=== PATIENT | male | born 1965 ===

== ENCOUNTER 2022-08-23 16:40 | Inpatient (IN) ==
[2022-08-23] MEDS ORDERED: ALBUTEROL/IPRATROPIUM 3 ML NEB RESP TX STA (16:58)
[2022-08-23] MEDS ORDERED: ALBUTEROL 2.5 MG/3 ML NEB RESP TX STA (16:58)
[2022-08-23] MEDS ORDERED: ASPIRIN 325 MG TABLET PO STA (16:58)
[2022-08-23] MEDS ORDERED: methylPREDNISolone SOD SUC 125 MG/2 ML VIAL IV STA (16:58)
[2022-08-23] MEDS ORDERED: FUROSEMIDE 40 MG/4 ML VIAL IV STA ×2 (16:59→19:04)
[2022-08-23 17:23] LABS: Basophils # 0.1 10*3/uL (0.0-0.2); Basophils % 0.8 % (0.0-0.8); Eosinophils # 0.1 10*3/uL (0.0-0.87); Eosinophils % 1.2 % (0.00-10.9); Hematocrit 24.5 VOL% (42.0-52.0); Hemoglobin 7.6 GM/DL (14.0-18.0); Immature Granulocytes % 0.5 %; Immature Granulocytes Absolute 0.04 #; Lymphocytes # 0.6 10*3/uL (1.4-4.0); Mean Corpuscular Volume 92.1 FL (87-102); Mean Platelet Volume 8.3 FL (9.6-12.0); Monocytes # 0.5 10*3/uL (0.11-0.8); Monocytes % 6.7 % (1.7-12.7); Neutrophils % 82.8 % (38.7-73.9); Platelet Count 206 T/CUMM (130-400); Red Blood Count 2.66 MC/CUMM (3.8-5.5); Red Cell Distribution Width 21.3 % (9.3-17.3); White Blood Count 7.4 T/CUMM (4-12)
[2022-08-23 17:40] LABS: INR 1.4
[2022-08-23 17:44] LABS: Alanine Aminotransferase 10 U/L (16-61); Albumin 2.4 G/DL (3.4-5.0); Alkaline Phosphatase 354 U/L (45-117); Aspartate Amino Transferase 13 U/L (0-37); Blood Urea Nitrogen 133 MG/DL (7-18); Calcium 7.7 MG/DL (8.5-10.1); Carbon Dioxide 20 MMOL/L (21-32); Chloride 98 MMOL/L (98-107); Glucose 73 MG/DL (74-106); Osmolality,Calculated 305.5 MOS/KG (273-304); Sodium 132 MMOL/L (136-145); Total Protein 5.3 G/DL (6.4-8.2)
[2022-08-23 17:51] LABS: Potassium 6.1 MMOL/L (3.5-5.1)
[2022-08-23 18:16] LABS: Arterial Base Excess iSTAT -5 MMOL/L (-2.5-2.5); Arterial Bicarbonate iSTAT 21.4 MMOL/L (20-26); Arterial O2 Saturation iSTAT 64 % (95-100); Arterial PCO2 iSTAT 45 MM HG (35-48); Arterial PO2 iSTAT 37 MM HG (80-95); Arterial Total CO2 iSTAT 23 MMO/L (23-27); Arterial pH iSTAT 7.283 (7.35-7.45)
[2022-08-23 18:30] LABS: Bilirubin,Urine Negative (Negative); Blood, Urine Small mg/dL (Negative); Glucose,Urine (UA) Negative (Negative); Ketones,Urine Negative (Negative); Nitrite,Urine Negative (Negative); Protein,Urine 30 mg/dL (Negative); Urine Appearance Clear (Clear); Urine Color Yellow (Yellow); Urine Specific Gravity 1.015 (1.001-1.035); Urine Urobilinogen 0.2 eU/dL (<2.0); Urine pH 5.5 (4.5-8.0)
[2022-08-23 18:32] LABS: Arterial Base Excess iSTAT -6 MMOL/L (-2.5-2.5); Arterial Bicarbonate iSTAT 20.2 MMOL/L (20-26); Arterial O2 Saturation iSTAT 99 % (95-100); Arterial PCO2 iSTAT 42 MM HG (35-48); Arterial PO2 iSTAT 164 MM HG (80-95); Arterial Total CO2 iSTAT 21 MMO/L (23-27)
[2022-08-23 18:34] LABS: Bacteria,Urine Occasional /HPF (Few); Hyaline Casts,Urine 4 /LPF (0-3); RBC,Urine 11 /HPF (0-4)
[2022-08-23] MEDS ORDERED: SODIUM BICARBONATE 50 MEQ/50 ML VIAL IV STA (18:55)
[2022-08-23] MEDS ORDERED: INSULIN REGULAR 100 UNIT/ML IV STA (19:04)
[2022-08-23] MEDS ORDERED: DEXTROSE 50% 25 GM/50 ML VIAL IV STA (19:04)
[2022-08-23] MEDS ORDERED: DEXTROSE 50% 25 GM/50 ML SYRINGE IV STA (19:08)
[2022-08-23] MEDS ORDERED: CALCIUM GLUCONATE RIDER 2,000 MG/100 ML PREMIX IV ONE (19:20)
[2022-08-23] MEDS ORDERED: SODIUM POLYSTYRENE SULFATE 15 GM/60 ML BOTTLE PO STA (19:48)
[2022-08-23] MEDS ORDERED: ACETAMINOPHEN 325 MG TABLET PO PRN (19:50)
[2022-08-23] MEDS ORDERED: ONDANSETRON 4 MG/2 ML VIAL IV PRN (19:50)
[2022-08-23] MEDS ORDERED: FUROSEMIDE 40 MG/4 ML VIAL IV ONE (19:59)
[2022-08-23] MEDS: cefTRIAXone 1,000 MG in SODIUM CHLORIDE 0.9% 100 ML IV SCH (22:22)
[2022-08-23] MEDS: HEPARIN 5,000 UNIT/1 ML VIAL SUBCUT SCH (22:22)
[2022-08-24] MEDS: ALBUTEROL/IPRATROPIUM 3 ML NEB RESP TX SCH ×4 (00:56→19:15)
[2022-08-24 03:15] LABS: Basophils % 0.2 % (0.0-0.8); Hematocrit 25.8 VOL% (42.0-52.0); Hemoglobin 7.8 GM/DL (14.0-18.0); Immature Granulocytes % 2.2 %; Immature Granulocytes Absolute 0.13 #; Lymphocytes # 0.3 10*3/uL (1.4-4.0); Lymphocytes % 5.7 % (21.2-54.2); Mean Corpuscular HGB Conc 30.2 GM/DL (32-36); Mean Corpuscular Volume 93.5 FL (87-102); Mean Platelet Volume 8.9 FL (9.6-12.0); Monocytes # 0.1 10*3/uL (0.11-0.8); Monocytes % 1.2 % (1.7-12.7); Neutrophils % 90.7 % (38.7-73.9); Platelet Count 224 T/CUMM (130-400); Red Blood Count 2.76 MC/CUMM (3.8-5.5); Red Cell Distribution Width 21.3 % (9.3-17.3); White Blood Count 5.8 T/CUMM (4-12)
[2022-08-24 03:32] LABS: Alanine Aminotransferase 12 U/L (16-61); Albumin 2.2 G/DL (3.4-5.0); Alkaline Phosphatase 300 U/L (45-117); Aspartate Amino Transferase 33 U/L (0-37); Blood Urea Nitrogen 134 MG/DL (7-18); Calcium 9.8 MG/DL (8.5-10.1); Carbon Dioxide 21 MMOL/L (21-32); Chloride 94 MMOL/L (98-107); Glucose 297 MG/DL (74-106); Osmolality,Calculated 313.8 MOS/KG (273-304); Sodium 130 MMOL/L (136-145); Total Protein 5.3 G/DL (6.4-8.2)
[2022-08-24 03:35] LABS: Potassium 6.6 MMOL/L (3.5-5.1)
[2022-08-24 03:39] LABS: Arterial Base Excess iSTAT -4 MMOL/L (-2.5-2.5); Arterial Bicarbonate iSTAT 22.6 MMOL/L (20-26); Arterial O2 Saturation iSTAT 100 % (95-100); Arterial PCO2 iSTAT 48 MM HG (35-48); Arterial PO2 iSTAT 570 MM HG (80-95); Arterial Total CO2 iSTAT 24 MMO/L (23-27); Arterial pH iSTAT 7.277 (7.35-7.45)
[2022-08-24] MEDS ORDERED: INSULIN REGULAR 10 UNIT, CALCIUM GLUCONATE 1,000 MG in DEXTROSE 10% 250 ML IV ONE ×2 (03:49→05:30)
[2022-08-24] MEDS ORDERED: SODIUM BICARBONATE 50 MEQ/50 ML VIAL IV ONE (03:50)
[2022-08-24 04:24] LABS: Hypochromia Slight; Lymphocytes 5 % (20-55); Platelet Estimate Adequate; Total Cells Counted 100
[2022-08-24] MEDS: AZITHROMYCIN INJ 500 MG in SODIUM CHLORIDE 0.9% 250 ML IV SCH (08:29)
[2022-08-24] MEDS: HEPARIN 5,000 UNIT/1 ML VIAL SUBCUT SCH ×2 (08:30→21:15)
[2022-08-24 08:47] LABS: Hepatitis B Core IgM Quant 0.13 Index; Hepatitis B Surface Ag Quant < 0.10 Index; Hepatitis B Surface Ag Result Non-Reactive (NonReactive); Hepatitis C Virus Ab Quant 0.05 Index; Hepatitis C Virus Ab Result Non-Reactive (NonReactive)
[2022-08-24] MEDS ORDERED: metOLazone 5 MG TABLET PO SCH (09:00)
[2022-08-24] MEDS: MIDAZOLAM 100 MG in SODIUM CHLORIDE 0.9% 80 ML IV PRN (09:04)
[2022-08-24] MEDS ORDERED: PHENYLEPHRINE DRIP 40 MG/250 ML PREMIX IV ONE (09:46)
[2022-08-24] MEDS: PHENYLEPHRINE DRIP 40 MG/250 ML PREMIX IV PRN (10:28)
[2022-08-24] MEDS ORDERED: HEPARIN 10,000 UNIT/10 ML VIAL IV SCH (13:00)
[2022-08-24] MEDS: cefTRIAXone 1,000 MG in SODIUM CHLORIDE 0.9% 100 ML IV SCH (21:15)
[2022-08-25] MEDS: ALBUTEROL/IPRATROPIUM 3 ML NEB RESP TX SCH ×4 (00:10→19:08)
[2022-08-25] MEDS: PHENYLEPHRINE DRIP 40 MG/250 ML PREMIX IV PRN ×3 (02:18→23:41)
[2022-08-25 03:24] LABS: Basophils % 0.2 % (0.0-0.8); Eosinophils % 0.2 % (0.00-10.9); Hematocrit 24.1 VOL% (42.0-52.0); Hemoglobin 7.6 GM/DL (14.0-18.0); Immature Granulocytes % 0.5 %; Immature Granulocytes Absolute 0.06 #; Lymphocytes # 1.1 10*3/uL (1.4-4.0); Lymphocytes % 9.7 % (21.2-54.2); Mean Corpuscular HGB Conc 31.5 GM/DL (32-36); Mean Corpuscular Volume 91.3 FL (87-102); Mean Platelet Volume 8.7 FL (9.6-12.0); Monocytes # 0.9 10*3/uL (0.11-0.8); Monocytes % 8.2 % (1.7-12.7); Neutrophils % 81.2 % (38.7-73.9); Platelet Count 190 T/CUMM (130-400); Red Blood Count 2.64 MC/CUMM (3.8-5.5); Red Cell Distribution Width 21.4 % (9.3-17.3); White Blood Count 11.5 T/CUMM (4-12)
[2022-08-25 03:40] LABS: Calcium 8.1 MG/DL (8.5-10.1); Osmolality,Calculated 299.8 MOS/KG (273-304); Potassium 4.6 MMOL/L (3.5-5.1)
[2022-08-25 03:46] LABS: Arterial Base Excess iSTAT 0 MMOL/L (-2.5-2.5); Arterial Bicarbonate iSTAT 25.3 MMOL/L (20-26); Arterial O2 Saturation iSTAT 99 % (95-100); Arterial PCO2 iSTAT 43 MM HG (35-48); Arterial PO2 iSTAT 136 MM HG (80-95); Arterial Total CO2 iSTAT 27 MMO/L (23-27); Arterial pH iSTAT 7.382 (7.35-7.45)
[2022-08-25] MEDS: PANTOPRAZOLE 40 MG VIAL IV SCH (08:03)
[2022-08-25] MEDS: AZITHROMYCIN INJ 500 MG in SODIUM CHLORIDE 0.9% 250 ML IV SCH (08:08)
[2022-08-25] MEDS: HEPARIN 5,000 UNIT/1 ML VIAL SUBCUT SCH ×2 (08:08→20:33)
[2022-08-25] MEDS: MIDAZOLAM 100 MG in SODIUM CHLORIDE 0.9% 80 ML IV PRN ×2 (09:10→20:32)
[2022-08-25] MEDS: DEXTROSE 10% 250 ML BAG IV PRN (13:03)
[2022-08-25] MEDS: cefTRIAXone 1,000 MG in SODIUM CHLORIDE 0.9% 100 ML IV SCH (20:37)
[2022-08-26] MEDS: ALBUTEROL/IPRATROPIUM 3 ML NEB RESP TX SCH ×4 (00:13→18:14)
[2022-08-26 04:18] LABS: Arterial Base Excess iSTAT 1 MMOL/L (-2.5-2.5); Arterial Bicarbonate iSTAT 25.2 MMOL/L (20-26); Arterial O2 Saturation iSTAT 99 % (95-100); Arterial PCO2 iSTAT 38 MM HG (35-48); Arterial PO2 iSTAT 153 MM HG (80-95); Arterial Total CO2 iSTAT 26 MMO/L (23-27); Arterial pH iSTAT 7.435 (7.35-7.45)
[2022-08-26 05:07] LABS: Basophils % 0.3 % (0.0-0.8); Eosinophils # 0.1 10*3/uL (0.0-0.87); Eosinophils % 0.6 % (0.00-10.9); Hematocrit 24.7 VOL% (42.0-52.0); Hemoglobin 7.6 GM/DL (14.0-18.0); Immature Granulocytes % 0.5 %; Immature Granulocytes Absolute 0.06 #; Lymphocytes # 1.2 10*3/uL (1.4-4.0); Lymphocytes % 9.9 % (21.2-54.2); Mean Corpuscular HGB Conc 30.8 GM/DL (32-36); Mean Corpuscular Volume 92.9 FL (87-102); Mean Platelet Volume 8.4 FL (9.6-12.0); Monocytes # 0.9 10*3/uL (0.11-0.8); Monocytes % 7.8 % (1.7-12.7); Neutrophils % 80.9 % (38.7-73.9); Platelet Count 158 T/CUMM (130-400); Red Blood Count 2.66 MC/CUMM (3.8-5.5); Red Cell Distribution Width 21.4 % (9.3-17.3); White Blood Count 11.9 T/CUMM (4-12)
[2022-08-26 05:27] LABS: Calcium 8.3 MG/DL (8.5-10.1); Osmolality,Calculated 285.8 MOS/KG (273-304); Potassium 4.1 MMOL/L (3.5-5.1)
[2022-08-26] MEDS: MIDAZOLAM 100 MG in SODIUM CHLORIDE 0.9% 80 ML IV PRN ×2 (06:42→17:18)
[2022-08-26] MEDS ORDERED: SODIUM CHLORIDE 0.9% 1,000 ML IV PRN (08:44)
[2022-08-26] MEDS: AZITHROMYCIN INJ 500 MG in SODIUM CHLORIDE 0.9% 250 ML IV SCH (09:03)
[2022-08-26] MEDS: PANTOPRAZOLE 40 MG VIAL IV SCH (09:04)
[2022-08-26] MEDS: HEPARIN 5,000 UNIT/1 ML VIAL SUBCUT SCH ×2 (09:05→20:22)
[2022-08-26] MEDS ORDERED: fentaNYL 25 MCG/HR PATCH TRANSDERM PRN ×2 (12:16→13:00)
[2022-08-26] MEDS: GABAPENTIN 100 MG CAPSULE PO SCH ×2 (14:24→20:22)
[2022-08-26 16:05] LABS: Hematocrit 27.6 VOL% (42.0-52.0); Hemoglobin 8.7 GM/DL (14.0-18.0)
[2022-08-26] MEDS: cefTRIAXone 1,000 MG in SODIUM CHLORIDE 0.9% 100 ML IV SCH (20:22)
[2022-08-27] MEDS: ALBUTEROL/IPRATROPIUM 3 ML NEB RESP TX SCH ×4 (00:41→19:09)
[2022-08-27 03:54] LABS: Basophils % 0.2 % (0.0-0.8); Eosinophils # 0.1 10*3/uL (0.0-0.87); Eosinophils % 1.2 % (0.00-10.9); Hematocrit 25.4 VOL% (42.0-52.0); Hemoglobin 7.9 GM/DL (14.0-18.0); Immature Granulocytes % 0.7 %; Immature Granulocytes Absolute 0.07 #; Lymphocytes % 9.2 % (21.2-54.2); Mean Corpuscular HGB Conc 31.1 GM/DL (32-36); Mean Corpuscular Volume 93.4 FL (87-102); Mean Platelet Volume 9.2 FL (9.6-12.0); Monocytes # 0.7 10*3/uL (0.11-0.8); Monocytes % 6.2 % (1.7-12.7); Neutrophils % 82.5 % (38.7-73.9); Red Blood Count 2.72 MC/CUMM (3.8-5.5); White Blood Count 10.4 T/CUMM (4-12)
[2022-08-27 03:56] LABS: Platelet Count 106 T/CUMM (130-400)
[2022-08-27 04:00] LABS: Arterial Base Excess iSTAT 3 MMOL/L (-2.5-2.5); Arterial Bicarbonate iSTAT 26.8 MMOL/L (20-26); Arterial O2 Saturation iSTAT 98 % (95-100); Arterial PCO2 iSTAT 39 MM HG (35-48); Arterial PO2 iSTAT 96 MM HG (80-95); Arterial Total CO2 iSTAT 28 MMO/L (23-27); Arterial pH iSTAT 7.445 (7.35-7.45)
[2022-08-27 04:00] LABS: Arterial Base Excess iSTAT 3 MMOL/L (-2.5-2.5); Arterial Bicarbonate iSTAT 27.1 MMOL/L (20-26); Arterial O2 Saturation iSTAT 90 % (95-100); Arterial PCO2 iSTAT 40 MM HG (35-48); Arterial PO2 iSTAT 56 MM HG (80-95); Arterial Total CO2 iSTAT 28 MMO/L (23-27); Arterial pH iSTAT 7.436 (7.35-7.45)
[2022-08-27 04:06] LABS: Calcium 8.2 MG/DL (8.5-10.1); Osmolality,Calculated 287.5 MOS/KG (273-304); Potassium 3.5 MMOL/L (3.5-5.1); Total Protein 4.8 G/DL (6.4-8.2)
[2022-08-27] MEDS: MIDAZOLAM 100 MG in SODIUM CHLORIDE 0.9% 80 ML IV PRN (04:20)
[2022-08-27] MEDS: HEPARIN 5,000 UNIT/1 ML VIAL SUBCUT SCH ×2 (08:25→20:25)
[2022-08-27] MEDS: AZITHROMYCIN INJ 500 MG in SODIUM CHLORIDE 0.9% 250 ML IV SCH (08:25)
[2022-08-27] MEDS: FERROUS SULFATE 325 MG TABLET PO SCH (08:25)
[2022-08-27] MEDS: GABAPENTIN 100 MG CAPSULE PO SCH ×3 (08:25→20:26)
[2022-08-27] MEDS: PANTOPRAZOLE 40 MG VIAL IV SCH (08:25)
[2022-08-27] MEDS: cefTRIAXone 1,000 MG in SODIUM CHLORIDE 0.9% 100 ML IV SCH (20:25)
[2022-08-28] MEDS: ALBUTEROL/IPRATROPIUM 3 ML NEB RESP TX SCH ×4 (00:20→19:43)
[2022-08-28 03:26] LABS: Arterial Base Excess iSTAT 2 MMOL/L (-2.5-2.5); Arterial Bicarbonate iSTAT 27.3 MMOL/L (20-26); Arterial O2 Saturation iSTAT 99 % (95-100); Arterial PCO2 iSTAT 43 MM HG (35-48); Arterial PO2 iSTAT 143 MM HG (80-95); Arterial Total CO2 iSTAT 29 MMO/L (23-27); Arterial pH iSTAT 7.415 (7.35-7.45)
[2022-08-28 04:41] LABS: Albumin 2.1 G/DL (3.4-5.0); Bilirubin,Total 0.9 MG/DL (0.20-1.00); Calcium 8.4 MG/DL (8.5-10.1); Osmolality,Calculated 290.5 MOS/KG (273-304); Potassium 3.6 MMOL/L (3.5-5.1); Total Protein 5.3 G/DL (6.4-8.2)
[2022-08-28 04:43] LABS: Basophils % 0.3 % (0.0-0.8); Eosinophils # 0.5 10*3/uL (0.0-0.87); Hematocrit 27.7 VOL% (42.0-52.0); Hemoglobin 8.2 GM/DL (14.0-18.0); Immature Granulocytes % 0.5 %; Immature Granulocytes Absolute 0.07 #; Lymphocytes # 0.9 10*3/uL (1.4-4.0); Lymphocytes % 6.7 % (21.2-54.2); Mean Corpuscular HGB Conc 29.6 GM/DL (32-36); Mean Corpuscular Volume 96.5 FL (87-102); Mean Platelet Volume 9.1 FL (9.6-12.0); Monocytes % 7.4 % (1.7-12.7); Neutrophils % 81.1 % (38.7-73.9); Platelet Count 113 T/CUMM (130-400); Red Blood Count 2.87 MC/CUMM (3.8-5.5); Red Cell Distribution Width 20.6 % (9.3-17.3); White Blood Count 13.2 T/CUMM (4-12)
[2022-08-28] MEDS: HEPARIN 5,000 UNIT/1 ML VIAL SUBCUT SCH ×2 (08:46→20:10)
[2022-08-28] MEDS: GABAPENTIN 100 MG CAPSULE PO SCH ×3 (08:46→20:09)
[2022-08-28] MEDS: FERROUS SULFATE 325 MG TABLET PO SCH (08:46)
[2022-08-28] MEDS: PANTOPRAZOLE 40 MG VIAL IV SCH (08:47)
[2022-08-28] MEDS: AZITHROMYCIN INJ 500 MG in SODIUM CHLORIDE 0.9% 250 ML IV SCH (08:47)
[2022-08-28] MEDS ORDERED: FUROSEMIDE 100 MG/10 ML VIAL IV ONE (09:05)
[2022-08-28] MEDS: cefTRIAXone 1,000 MG in SODIUM CHLORIDE 0.9% 100 ML IV SCH (20:09)
[2022-08-29] MEDS: ALBUTEROL/IPRATROPIUM 3 ML NEB RESP TX SCH ×4 (00:40→19:41)
[2022-08-29 03:43] LABS: Basophils % 0.4 % (0.0-0.8); Eosinophils # 0.4 10*3/uL (0.0-0.87); Eosinophils % 3.7 % (0.00-10.9); Hematocrit 25.6 VOL% (42.0-52.0); Hemoglobin 7.8 GM/DL (14.0-18.0); Immature Granulocytes % 0.7 %; Immature Granulocytes Absolute 0.07 #; Lymphocytes # 0.9 10*3/uL (1.4-4.0); Lymphocytes % 8.2 % (21.2-54.2); Mean Corpuscular HGB Conc 30.5 GM/DL (32-36); Mean Corpuscular Volume 94.1 FL (87-102); Mean Platelet Volume 9.5 FL (9.6-12.0); Red Blood Count 2.72 MC/CUMM (3.8-5.5); Red Cell Distribution Width 20.4 % (9.3-17.3); White Blood Count 10.4 T/CUMM (4-12)
[2022-08-29 03:45] LABS: Platelet Count 98 T/CUMM (130-400)
[2022-08-29 03:52] LABS: Arterial Base Excess iSTAT 3 MMOL/L (-2.5-2.5); Arterial Bicarbonate iSTAT 27.2 MMOL/L (20-26); Arterial O2 Saturation iSTAT 99 % (95-100); Arterial PCO2 iSTAT 39 MM HG (35-48); Arterial PO2 iSTAT 138 MM HG (80-95); Arterial Total CO2 iSTAT 28 MMO/L (23-27); Arterial pH iSTAT 7.451 (7.35-7.45)
[2022-08-29 04:07] LABS: Platelet Estimate Decreased
[2022-08-29 04:12] LABS: Bilirubin,Total 0.9 MG/DL (0.20-1.00); Calcium 8.5 MG/DL (8.5-10.1); Osmolality,Calculated 294.5 MOS/KG (273-304); Potassium 3.9 MMOL/L (3.5-5.1); Total Protein 5.3 G/DL (6.4-8.2)
[2022-08-29] MEDS: PANTOPRAZOLE 40 MG VIAL IV SCH (08:00)
[2022-08-29] MEDS: FERROUS SULFATE 325 MG TABLET PO SCH (08:04)
[2022-08-29] MEDS: HEPARIN 5,000 UNIT/1 ML VIAL SUBCUT SCH ×2 (08:04→21:37)
[2022-08-29] MEDS: GABAPENTIN 100 MG CAPSULE PO SCH ×3 (08:05→21:38)
[2022-08-29] MEDS: AZITHROMYCIN INJ 500 MG in SODIUM CHLORIDE 0.9% 250 ML IV SCH (08:05)
[2022-08-29 15:02] VITALS: BP 137/95
[2022-08-29] MEDS: methylPREDNISolone SOD SUC 40 MG/1 ML VIAL IV SCH (18:35)
[2022-08-29] MEDS: cefTRIAXone 1,000 MG in SODIUM CHLORIDE 0.9% 100 ML IV SCH (21:38)
[2022-08-30] MEDS: ALBUTEROL/IPRATROPIUM 3 ML NEB RESP TX SCH ×4 (00:19→20:27)
[2022-08-30] MEDS: methylPREDNISolone SOD SUC 40 MG/1 ML VIAL IV SCH ×2 (03:31→09:30)
[2022-08-30 04:07] LABS: Arterial Base Excess iSTAT -1 MMOL/L (-2.5-2.5); Arterial Bicarbonate iSTAT 22.5 MMOL/L (20-26); Arterial O2 Saturation iSTAT 99 % (95-100); Arterial PCO2 iSTAT 31 MM HG (35-48); Arterial PO2 iSTAT 129 MM HG (80-95); Arterial Total CO2 iSTAT 23 MMO/L (23-27); Arterial pH iSTAT 7.475 (7.35-7.45)
[2022-08-30 04:40] LABS: Basophils % 0.2 % (0.0-0.8); Hematocrit 28.7 VOL% (42.0-52.0); Hemoglobin 8.5 GM/DL (14.0-18.0); Immature Granulocytes % 0.8 %; Immature Granulocytes Absolute 0.07 #; Lymphocytes # 0.4 10*3/uL (1.4-4.0); Lymphocytes % 4.9 % (21.2-54.2); Mean Corpuscular HGB Conc 29.6 GM/DL (32-36); Mean Platelet Volume 10.6 FL (9.6-12.0); Monocytes # 0.4 10*3/uL (0.11-0.8); Monocytes % 3.9 % (1.7-12.7); Neutrophils % 90.2 % (38.7-73.9); Platelet Count 106 T/CUMM (130-400); Red Blood Count 2.93 MC/CUMM (3.8-5.5); Red Cell Distribution Width 20.4 % (9.3-17.3)
[2022-08-30 04:59] LABS: Albumin 2.3 G/DL (3.4-5.0); Bilirubin,Total 1.2 MG/DL (0.20-1.00); Calcium 9.2 MG/DL (8.5-10.1); Hypochromia Slight; Lymphocytes 6 % (20-55); Microcytosis Slight; Osmolality,Calculated 300.3 MOS/KG (273-304); Platelet Estimate Decreased; Potassium 5.2 MMOL/L (3.5-5.1); Total Cells Counted 100; Total Protein 6.3 G/DL (6.4-8.2)
[2022-08-30] MEDS ORDERED: METOPROLOL TARTRATE 5 MG/5 ML VIAL IV ONE (05:24)
[2022-08-30] MEDS: PANTOPRAZOLE 40 MG VIAL IV SCH (08:20)
[2022-08-30] MEDS: HEPARIN 5,000 UNIT/1 ML VIAL SUBCUT SCH ×2 (08:27→20:30)
[2022-08-30] MEDS: FERROUS SULFATE 325 MG TABLET PO SCH (08:27)
[2022-08-30] MEDS: GABAPENTIN 100 MG CAPSULE PO SCH ×3 (08:27→20:30)
[2022-08-30] MEDS: carvediloL 6.25 MG TABLET PO SCH ×2 (08:27→20:47)
[2022-08-30] MEDS: AZITHROMYCIN INJ 500 MG in SODIUM CHLORIDE 0.9% 250 ML IV SCH (08:27)
[2022-08-30] MEDS ORDERED: SODIUM POLYSTYRENE SULFATE 15 GM/60 ML BOTTLE PO STA (09:00)
[2022-08-30] MEDS ORDERED: PHENYLEPHRINE DRIP 40 MG/250 ML PREMIX IV PRN (09:50)
[2022-08-30] MEDS ORDERED: ATROPINE 1 MG/10 ML SYRINGE ONE (09:52)
[2022-08-30] MEDS ORDERED: ROCURONIUM 100 MG/10 ML VIAL IV ONE (09:53)
[2022-08-30] MEDS ORDERED: ETOMIDATE 20 MG/10 ML VIAL IV ONE (09:53)
[2022-08-30] MEDS ORDERED: NOREPINEPHRINE 4 MG/4 ML VIAL IV ONE ×2 (10:03→11:12)
[2022-08-30] MEDS: NOREPINEPHRINE 8 MG in SODIUM CHLORIDE 0.9% 242 ML IV PRN ×4 (10:10→15:21)
[2022-08-30] MEDS ORDERED: EPINEPHrine 1 MG/ML VIAL ONE ×2 (10:13→11:13)
[2022-08-30] MEDS ORDERED: SODIUM BICARBONATE 50 MEQ/50 ML VIAL IV ONE ×4 (10:26→10:45)
[2022-08-30 10:31] LABS: Arterial Base Excess iSTAT -14 MMOL/L (-2.5-2.5); Arterial Bicarbonate iSTAT 14.3 MMOL/L (20-26); Arterial O2 Saturation iSTAT 47 % (95-100); Arterial PCO2 iSTAT 40 MM HG (35-48); Arterial PO2 iSTAT 32 MM HG (80-95); Arterial Total CO2 iSTAT 15 MMO/L (23-27); Arterial pH iSTAT 7.155 (7.35-7.45)
[2022-08-30 10:52] LABS: Basophils % 0.1 % (0.0-0.8); Eosinophils % 0.1 % (0.00-10.9); Hematocrit 30.4 VOL% (42.0-52.0); Immature Granulocytes % 2.3 %; Immature Granulocytes Absolute 0.18 #; Lymphocytes % 13.2 % (21.2-54.2); Mean Corpuscular Volume 104.1 FL (87-102); Mean Platelet Volume 11.6 FL (9.6-12.0); Monocytes # 0.4 10*3/uL (0.11-0.8); Monocytes % 5.1 % (1.7-12.7); NRBC # 0.04 10*3/uL; Neutrophils % 79.2 % (38.7-73.9); Red Blood Count 2.92 MC/CUMM (3.8-5.5); Red Cell Distribution Width 20.4 % (9.3-17.3); White Blood Count 7.8 T/CUMM (4-12)
[2022-08-30 10:54] LABS: Hemoglobin 8.5 GM/DL (14.0-18.0); Platelet Count 75 T/CUMM (130-400)
[2022-08-30 10:55] LABS: Alanine Aminotransferase 78 U/L (16-61); Albumin 1.9 G/DL (3.4-5.0); Alkaline Phosphatase 415 U/L (45-117); Aspartate Amino Transferase 350 U/L (0-37); Blood Urea Nitrogen 63 MG/DL (7-18); Calcium 8.9 MG/DL (8.5-10.1); Carbon Dioxide 17 MMOL/L (21-32); Chloride 106 MMOL/L (98-107); Glucose 75 MG/DL (74-106); Osmolality,Calculated 308.4 MOS/KG (273-304); Potassium 5.5 MMOL/L (3.5-5.1); Sodium 147 MMOL/L (136-145); Total Protein 5.3 G/DL (6.4-8.2)
[2022-08-30] MEDS ORDERED: SODIUM BICARB INJ 150 MEQ in STERILE WATER INJ 1,000 ML IV SCH (11:30)
[2022-08-30 12:07] LABS: Macrocytosis Slight; Platelet Estimate Decreased
[2022-08-30] MEDS ORDERED: CEFEPIME 1,000 MG in SODIUM CHLORIDE 0.9% 100 ML IV ONE (12:30)
[2022-08-30 13:39] LABS: ABG Base Excess -19.7 MMOL/L (-2.5-2.5); ABG HCO3 9.9 MMOL/L (20-26); ABG Oxygen Saturation 99.5 % (95-100); ABG TCO2 9.3 MMOL/L (23-27)
[2022-08-30 13:40] LABS: ABG PH 7.068 (7.35-7.45)
[2022-08-30 14:25] LABS: Albumin 1.6 G/DL (3.4-5.0); Bilirubin,Total 2.6 MG/DL (0.20-1.00); Calcium 8.1 MG/DL (8.5-10.1); Osmolality,Calculated 301.7 MOS/KG (273-304); Total Protein 4.6 G/DL (6.4-8.2)
[2022-08-30 14:27] LABS: Potassium 6.9 MMOL/L (3.5-5.1)
[2022-08-30] MEDS ORDERED: INSULIN REGULAR 10 UNIT, CALCIUM GLUCONATE 1,000 MG in DEXTROSE 10% 250 ML IV ONE (14:30)
[2022-08-30] MEDS: DEXTROSE 10% 250 ML BAG IV PRN ×2 (14:35→20:00)
[2022-08-30] MEDS: HYDROCORTISONE 100 MG VIAL IV SCH ×2 (14:37→22:11)
[2022-08-30] MEDS ORDERED: SODIUM BICARB INJ 150 MEQ in DEXTROSE 5% 850 ML IV SCH (15:00)
[2022-08-30] MEDS ORDERED: SODIUM ZIRCONIUM CYCLOSILICATE 10 GM PACK PO ONE (15:14)
[2022-08-30] MEDS: SODIUM BICARB INJ 150 MEQ in DEXTROSE 5% 1,000 ML IV SCH (15:18)
[2022-08-30] MEDS: NOREPINEPHRINE 16 MG in SODIUM CHLORIDE 0.9% 234 ML IV PRN ×2 (17:25→20:29)
[2022-08-30 18:39] LABS: Albumin 1.5 G/DL (3.4-5.0); Bilirubin,Total 2.7 MG/DL (0.20-1.00); Calcium 7.9 MG/DL (8.5-10.1); Osmolality,Calculated 311.6 MOS/KG (273-304); Potassium 5.7 MMOL/L (3.5-5.1); Total Protein 4.2 G/DL (6.4-8.2)
[2022-08-30 19:19] LABS: ABG Oxygen Saturation 99.8 % (95-100); ABG PCO2 38.7 MM HG (35-48); ABG TCO2 12.7 MMOL/L (23-27)
[2022-08-30 19:23] LABS: ABG PH 7.144 (7.35-7.45)
[2022-08-30] MEDS ORDERED: SIMVASTATIN 40 MG TABLET PO SCH (21:00)
[2022-08-30] MEDS: MIDAZOLAM 100 MG in SODIUM CHLORIDE 0.9% 80 ML IV PRN (22:59)
[2022-08-31 00:10] LABS: ABG Base Excess -10.5 MMOL/L (-2.5-2.5); ABG HCO3 16.1 MMOL/L (20-26); ABG PH 7.294 (7.35-7.45); ABG TCO2 13.9 MMOL/L (23-27)
[2022-08-31] MEDS: ALBUTEROL/IPRATROPIUM 3 ML NEB RESP TX SCH ×4 (00:15→19:00)
[2022-08-31] MEDS: SODIUM BICARB INJ 150 MEQ in DEXTROSE 5% 1,000 ML IV SCH ×2 (03:01→14:55)
[2022-08-31 03:50] LABS: Basophils % 0.1 % (0.0-0.8); Hematocrit 28.8 VOL% (42.0-52.0); Hemoglobin 8.6 GM/DL (14.0-18.0); Immature Granulocytes Absolute 0.49 #; Lymphocytes # 0.7 10*3/uL (1.4-4.0); Mean Corpuscular HGB Conc 29.9 GM/DL (32-36); Mean Platelet Volume 12.3 FL (9.6-12.0); Monocytes # 1.6 10*3/uL (0.11-0.8); Monocytes % 6.4 % (1.7-12.7); NRBC # 0.05 10*3/uL; Neutrophils % 88.5 % (38.7-73.9); Platelet Count 56 T/CUMM (130-400); Red Blood Count 2.91 MC/CUMM (3.8-5.5); Red Cell Distribution Width 19.8 % (9.3-17.3); White Blood Count 24.6 T/CUMM (4-12)
[2022-08-31 04:07] LABS: Calcium 7.7 MG/DL (8.5-10.1); Osmolality,Calculated 307.8 MOS/KG (273-304)
[2022-08-31 04:08] LABS: Band Neutrophils 1 % (0-10); Lymphocytes 1 % (20-55); Microcytosis Slight; Total Cells Counted 100
[2022-08-31 04:09] LABS: Ovalocytes Slight; Platelet Estimate Decreased
[2022-08-31 04:14] LABS: Arterial Base Excess iSTAT -7 MMOL/L (-2.5-2.5); Arterial Bicarbonate iSTAT 17.8 MMOL/L (20-26); Arterial O2 Saturation iSTAT 100 % (95-100); Arterial PCO2 iSTAT 34 MM HG (35-48); Arterial PO2 iSTAT 281 MM HG (80-95); Arterial Total CO2 iSTAT 19 MMO/L (23-27); Arterial pH iSTAT 7.327 (7.35-7.45)
[2022-08-31] MEDS ORDERED: INSULIN REGULAR 10 UNIT, CALCIUM GLUCONATE 1,000 MG in DEXTROSE 10% 250 ML IV ONE (04:20)
[2022-08-31] MEDS ORDERED: SODIUM ZIRCONIUM CYCLOSILICATE 10 GM PACK PER TUBE ONE (04:21)
[2022-08-31] MEDS: HYDROCORTISONE 100 MG VIAL IV SCH ×3 (05:33→21:24)
[2022-08-31] MEDS: carvediloL 6.25 MG TABLET PO SCH (08:30)
[2022-08-31] MEDS: HEPARIN 5,000 UNIT/1 ML VIAL SUBCUT SCH (08:41)
[2022-08-31] MEDS: PANTOPRAZOLE 40 MG VIAL IV SCH (08:42)
[2022-08-31] MEDS: FERROUS SULFATE 325 MG TABLET PO SCH (08:42)
[2022-08-31] MEDS: GABAPENTIN 100 MG CAPSULE PO SCH ×3 (08:42→21:22)
[2022-08-31 08:50] LABS: Alanine Aminotransferase 4787 U/L (16-61); Albumin 1.8 G/DL (3.4-5.0); Alkaline Phosphatase 373 U/L (45-117); Aspartate Amino Transferase > 20000 U/L (0-37); Bilirubin,Indirect 1.1 MG/DL (0.0-1.0); Total Protein 4.5 G/DL (6.4-8.2)
[2022-08-31] MEDS: CEFEPIME 1,000 MG in SODIUM CHLORIDE 0.9% 100 ML IV SCH (16:30)
[2022-08-31] MEDS ORDERED: carvediloL 6.25 MG TABLET PO SCH (17:00)
[2022-09-01] MEDS: SODIUM BICARB INJ 150 MEQ in DEXTROSE 5% 1,000 ML IV SCH (02:25)
[2022-09-01 03:54] LABS: ABG Base Excess 4.5 MMOL/L (-2.5-2.5); ABG HCO3 28.5 MMOL/L (20-26); ABG PCO2 33.2 MM HG (35-48); ABG PH 7.524 (7.35-7.45); ABG TCO2 25.4 MMOL/L (23-27)
[2022-09-01 04:05] LABS: Basophils % 0.1 % (0.0-0.8); Hematocrit 26.7 VOL% (42.0-52.0); Hemoglobin 8.3 GM/DL (14.0-18.0); Immature Granulocytes % 1.4 %; Immature Granulocytes Absolute 0.24 #; Lymphocytes # 0.9 10*3/uL (1.4-4.0); Lymphocytes % 5.4 % (21.2-54.2); Mean Corpuscular HGB Conc 31.1 GM/DL (32-36); Mean Corpuscular Volume 93.4 FL (87-102); Mean Platelet Volume 11.4 FL (9.6-12.0); Monocytes # 0.5 10*3/uL (0.11-0.8); Monocytes % 3.1 % (1.7-12.7); Red Blood Count 2.86 MC/CUMM (3.8-5.5); Red Cell Distribution Width 19.7 % (9.3-17.3)
[2022-09-01 04:06] LABS: Platelet Count 72 T/CUMM (130-400)
[2022-09-01 04:22] LABS: Platelet Estimate Decreased
[2022-09-01 04:39] LABS: Albumin 1.7 G/DL (3.4-5.0); Bilirubin,Total 4.7 MG/DL (0.20-1.00); Calcium 7.2 MG/DL (8.5-10.1); Osmolality,Calculated 298.3 MOS/KG (273-304); Potassium 4.2 MMOL/L (3.5-5.1); Total Protein 4.1 G/DL (6.4-8.2)
[2022-09-01] MEDS: HYDROCORTISONE 100 MG VIAL IV SCH ×2 (05:49→17:01)
[2022-09-01] MEDS: ALBUTEROL/IPRATROPIUM 3 ML NEB RESP TX SCH ×3 (07:18→13:44)
[2022-09-01] MEDS: GABAPENTIN 100 MG CAPSULE PO SCH ×3 (08:02→21:00)
[2022-09-01] MEDS: FERROUS SULFATE 325 MG TABLET PO SCH (08:02)
[2022-09-01] MEDS: PANTOPRAZOLE 40 MG VIAL IV SCH (08:03)
[2022-09-01 10:16] LABS: ABG HCO3 28.1 MMOL/L (20-26); ABG PCO2 31.2 MM HG (35-48); ABG PH 7.537 (7.35-7.45); ABG TCO2 24.3 MMOL/L (23-27)
[2022-09-01] MEDS: MIDAZOLAM 100 MG in SODIUM CHLORIDE 0.9% 80 ML IV PRN (12:00)
[2022-09-01] MEDS ORDERED: HYDROCORTISONE 100 MG VIAL ONE (14:58)
[2022-09-01] MEDS: CEFEPIME 1,000 MG in SODIUM CHLORIDE 0.9% 100 ML IV SCH (16:59)
[2022-09-02] MEDS: ALBUTEROL/IPRATROPIUM 3 ML NEB RESP TX SCH ×5 (00:22→18:59)
[2022-09-02 03:55] LABS: ABG Base Excess -0.6 MMOL/L (-2.5-2.5); ABG HCO3 23.9 MMOL/L (20-26); ABG Oxygen Saturation 98.5 % (95-100); ABG PCO2 25.1 MM HG (35-48); ABG PH 7.534 (7.35-7.45); ABG TCO2 19.4 MMOL/L (23-27)
[2022-09-02] MEDS ORDERED: fentaNYL 100 MCG/2 ML VIAL ONE (03:55)
[2022-09-02 04:04] LABS: Basophils % 0.1 % (0.0-0.8); Hematocrit 29.5 VOL% (42.0-52.0); Hemoglobin 9.2 GM/DL (14.0-18.0); Immature Granulocytes % 0.9 %; Immature Granulocytes Absolute 0.18 #; Lymphocytes # 0.8 10*3/uL (1.4-4.0); Lymphocytes % 4.1 % (21.2-54.2); Mean Corpuscular HGB Conc 31.2 GM/DL (32-36); Mean Corpuscular Volume 92.8 FL (87-102); Mean Platelet Volume 12.6 FL (9.6-12.0); Monocytes % 4.6 % (1.7-12.7); NRBC # 0.05 10*3/uL; Neutrophils % 90.3 % (38.7-73.9); Platelet Count 100 T/CUMM (130-400); Red Blood Count 3.18 MC/CUMM (3.8-5.5); White Blood Count 20.6 T/CUMM (4-12)
[2022-09-02] MEDS: fentaNYL INJ 1,250 MCG in SODIUM CHLORIDE 0.9% 225 ML IV PRN ×3 (04:20→15:57)
[2022-09-02] MEDS ORDERED: fentaNYL 100 MCG/2 ML VIAL IV ONE (04:30)
[2022-09-02 04:32] LABS: Calcium 7.7 MG/DL (8.5-10.1); Osmolality,Calculated 305.3 MOS/KG (273-304); Total Protein 4.5 G/DL (6.4-8.2)
[2022-09-02 04:53] LABS: Anisocytosis 2+; Platelet Estimate Decreased
[2022-09-02] MEDS: HYDROCORTISONE 100 MG VIAL IV SCH ×2 (05:31→20:28)
[2022-09-02] MEDS: MIDAZOLAM 100 MG in SODIUM CHLORIDE 0.9% 80 ML IV PRN ×2 (08:16→21:18)
[2022-09-02] MEDS: PANTOPRAZOLE 40 MG VIAL IV SCH (08:20)
[2022-09-02] MEDS: GABAPENTIN 100 MG CAPSULE PO SCH (08:24)
[2022-09-02] MEDS: FERROUS SULFATE 325 MG TABLET PO SCH (08:24)
[2022-09-02] MEDS ORDERED: PHENYTOIN INJ 1,000 MG in SODIUM CHLORIDE 0.9% 100 ML IV ONE ×2 (09:57→11:00)
[2022-09-02] MEDS: LORazepam 2 MG/1 ML VIAL IV PRN (10:05)
[2022-09-02] MEDS ORDERED: MIDAZOLAM 2 MG/2 ML VIAL IV ONE (10:09)
[2022-09-02] MEDS ORDERED: MIDAZOLAM 10 MG/2 ML VIAL ONE (10:10)
[2022-09-02] MEDS ORDERED: LORazepam 2 MG/1 ML VIAL IV ONE ×2 (10:15→10:22)
[2022-09-02] MEDS ORDERED: DIAZEPAM 10 MG/2 ML SYRINGE IV ONE (10:32)
[2022-09-02] MEDS: HEPARIN 5,000 UNIT/1 ML VIAL SUBCUT SCH (11:59)
[2022-09-02 13:57] LABS: Basophils % 0.2 % (0.0-0.8); Hematocrit 32.8 VOL% (42.0-52.0); Hemoglobin 9.7 GM/DL (14.0-18.0); Immature Granulocytes % 2.1 %; Immature Granulocytes Absolute 0.52 #; Lymphocytes # 0.9 10*3/uL (1.4-4.0); Lymphocytes % 3.7 % (21.2-54.2); Mean Corpuscular HGB Conc 29.6 GM/DL (32-36); Mean Corpuscular Volume 98.5 FL (87-102); Mean Platelet Volume 12.8 FL (9.6-12.0); Monocytes # 1.1 10*3/uL (0.11-0.8); Monocytes % 4.7 % (1.7-12.7); NRBC # 0.04 10*3/uL; Neutrophils % 89.3 % (38.7-73.9); Platelet Count 114 T/CUMM (130-400); Red Blood Count 3.33 MC/CUMM (3.8-5.5); Red Cell Distribution Width 20.1 % (9.3-17.3); White Blood Count 24.3 T/CUMM (4-12)
[2022-09-02] MEDS ORDERED: VANCOMYCIN INJ 750 MG in SODIUM CHLORIDE 0.9% 250 ML IV PRN (13:59)
[2022-09-02 14:20] LABS: Lymphocytes 2 % (20-55); Total Cells Counted 100
[2022-09-02 14:21] LABS: Anisocytosis Slight; Hypochromia Slight; Macrocytosis Slight; Microcytosis Slight; Platelet Estimate Adequate; Polychromasia Slight
[2022-09-02] MEDS ORDERED: VANCOMYCIN INJ 2,000 MG in SODIUM CHLORIDE 0.9% 500 ML IV ONE (14:30)
[2022-09-02 14:53] LABS: ABG Base Excess -6.5 MMOL/L (-2.5-2.5); ABG HCO3 19.1 MMOL/L (20-26); ABG Oxygen Saturation 97.7 % (95-100); ABG PCO2 37.6 MM HG (35-48); ABG PH 7.315 (7.35-7.45); ABG TCO2 17.8 MMOL/L (23-27)
[2022-09-02 15:46] LABS: Bilirubin,Total 9.8 MG/DL (0.20-1.00); Calcium 7.8 MG/DL (8.5-10.1); Osmolality,Calculated 309.1 MOS/KG (273-304); Phosphorous 6.4 MG/DL (2.5-4.9); Potassium 4.8 MMOL/L (3.5-5.1); Total Protein 4.5 G/DL (6.4-8.2)
[2022-09-02] MEDS: CEFEPIME 1,000 MG in SODIUM CHLORIDE 0.9% 100 ML IV SCH (16:00)
[2022-09-02] MEDS: NOREPINEPHRINE 16 MG in SODIUM CHLORIDE 0.9% 234 ML IV PRN (22:37)
[2022-09-03] MEDS: HEPARIN 5,000 UNIT/1 ML VIAL SUBCUT SCH ×2 (00:02→11:52)
[2022-09-03] MEDS: ALBUTEROL/IPRATROPIUM 3 ML NEB RESP TX SCH ×4 (00:46→19:35)
[2022-09-03 03:33] LABS: ABG Base Excess -2.1 MMOL/L (-2.5-2.5); ABG HCO3 22.7 MMOL/L (20-26); ABG Oxygen Saturation 99.3 % (95-100); ABG PCO2 36.4 MM HG (35-48); ABG PH 7.396 (7.35-7.45); ABG TCO2 20.9 MMOL/L (23-27)
[2022-09-03 03:44] LABS: Basophils % 0.2 % (0.0-0.8); Hemoglobin 7.8 GM/DL (14.0-18.0); Immature Granulocytes % 0.5 %; Immature Granulocytes Absolute 0.13 #; Lymphocytes # 1.2 10*3/uL (1.4-4.0); Lymphocytes % 4.9 % (21.2-54.2); Mean Corpuscular Volume 96.7 FL (87-102); Mean Platelet Volume 12.5 FL (9.6-12.0); Monocytes # 1.3 10*3/uL (0.11-0.8); Monocytes % 5.6 % (1.7-12.7); NRBC # 0.04 10*3/uL; Neutrophils % 88.8 % (38.7-73.9); Platelet Count 113 T/CUMM (130-400); Red Blood Count 2.69 MC/CUMM (3.8-5.5); Red Cell Distribution Width 19.5 % (9.3-17.3); White Blood Count 23.7 T/CUMM (4-12)
[2022-09-03 04:02] LABS: Albumin 1.9 G/DL (3.4-5.0); Bilirubin,Total 9.7 MG/DL (0.20-1.00); Calcium 7.5 MG/DL (8.5-10.1); Osmolality,Calculated 316.8 MOS/KG (273-304); Potassium 4.7 MMOL/L (3.5-5.1); Total Protein 4.1 G/DL (6.4-8.2)
[2022-09-03 04:09] LABS: Lymphocytes 7 % (20-55); Total Cells Counted 100
[2022-09-03 04:10] LABS: Platelet Estimate Adequate
[2022-09-03] MEDS: fentaNYL INJ 1,250 MCG in SODIUM CHLORIDE 0.9% 225 ML IV PRN ×2 (05:11→19:06)
[2022-09-03] MEDS: MIDAZOLAM 100 MG in SODIUM CHLORIDE 0.9% 80 ML IV PRN ×2 (08:19→19:06)
[2022-09-03] MEDS: LORazepam 2 MG/1 ML VIAL IV PRN ×2 (08:45→09:24)
[2022-09-03] MEDS: PANTOPRAZOLE 40 MG VIAL IV SCH (08:54)
[2022-09-03] MEDS: HYDROCORTISONE 100 MG VIAL IV SCH (08:55)
[2022-09-03] MEDS: FERROUS SULFATE 325 MG TABLET PO SCH (08:56)
[2022-09-03] MEDS: PHENYTOIN 100 MG/2 ML VIAL IV SCH ×2 (10:20→18:42)
[2022-09-03] MEDS ORDERED: VANCOMYCIN INJ 750 MG in SODIUM CHLORIDE 0.9% 250 ML IV ONE (17:00)
[2022-09-03] MEDS: CEFEPIME 1,000 MG in SODIUM CHLORIDE 0.9% 100 ML IV SCH (17:01)
[2022-09-04] MEDS: HEPARIN 5,000 UNIT/1 ML VIAL SUBCUT SCH ×2 (00:20→11:59)
[2022-09-04] MEDS: ALBUTEROL/IPRATROPIUM 3 ML NEB RESP TX SCH ×4 (00:40→19:05)
[2022-09-04] MEDS: PHENYTOIN 100 MG/2 ML VIAL IV SCH ×2 (02:45→09:48)
[2022-09-04 03:21] LABS: ABG Base Excess -1.5 MMOL/L (-2.5-2.5); ABG HCO3 23.1 MMOL/L (20-26); ABG PCO2 35.8 MM HG (35-48); ABG PH 7.411 (7.35-7.45); ABG TCO2 21.4 MMOL/L (23-27)
[2022-09-04 03:29] LABS: Basophils % 0.1 % (0.0-0.8); Hematocrit 24.6 VOL% (42.0-52.0); Hemoglobin 7.6 GM/DL (14.0-18.0); Immature Granulocytes % 0.8 %; Immature Granulocytes Absolute 0.19 #; Lymphocytes # 1.5 10*3/uL (1.4-4.0); Lymphocytes % 6.1 % (21.2-54.2); Mean Corpuscular HGB Conc 30.9 GM/DL (32-36); Mean Corpuscular Volume 93.2 FL (87-102); Mean Platelet Volume 11.8 FL (9.6-12.0); Monocytes # 1.2 10*3/uL (0.11-0.8); Monocytes % 4.9 % (1.7-12.7); NRBC # 0.02 10*3/uL; Neutrophils % 88.1 % (38.7-73.9); Platelet Count 100 T/CUMM (130-400); Red Blood Count 2.64 MC/CUMM (3.8-5.5); White Blood Count 23.6 T/CUMM (4-12)
[2022-09-04 03:49] LABS: Albumin 1.8 G/DL (3.4-5.0); Bilirubin,Total 8.8 MG/DL (0.20-1.00); Calcium 7.7 MG/DL (8.5-10.1); Osmolality,Calculated 315.4 MOS/KG (273-304); Phosphorous 6.4 MG/DL (2.5-4.9); Potassium 4.3 MMOL/L (3.5-5.1)
[2022-09-04 03:53] LABS: Lymphocytes 5 % (20-55); Total Cells Counted 100
[2022-09-04 03:55] LABS: Platelet Estimate Decreased
[2022-09-04 03:57] LABS: Anisocytosis Slight; Polychromasia Slight
[2022-09-04] MEDS: MIDAZOLAM 100 MG in SODIUM CHLORIDE 0.9% 80 ML IV PRN (06:26)
[2022-09-04] MEDS: NOREPINEPHRINE 16 MG in SODIUM CHLORIDE 0.9% 234 ML IV PRN (07:15)
[2022-09-04] MEDS: fentaNYL INJ 1,250 MCG in SODIUM CHLORIDE 0.9% 225 ML IV PRN (07:39)
[2022-09-04] MEDS: PANTOPRAZOLE 40 MG VIAL IV SCH (08:17)
[2022-09-04] MEDS: FERROUS SULFATE 325 MG TABLET PO SCH (08:20)
[2022-09-04] MEDS ORDERED: HYDROCORTISONE 100 MG VIAL IV SCH (09:00)
[2022-09-04] MEDS: LORazepam 2 MG/1 ML VIAL IV PRN ×7 (14:30→17:44)
[2022-09-04] MEDS: fentaNYL 100 MCG/2 ML VIAL IV PRN ×2 (14:33→16:29)
[2022-09-05] MEDS ORDERED: HYDROCORTISONE 100 MG VIAL IV SCH (09:00)
== END 2022-09-04 19:19 | disposition expired | DRG 682 ==
LOC: N.ED 16:40 → N.EDINP 19:33 → SUATTDRO 19:33 → N.TELEN 21:24 → N.ICU 08-24 02:50 → N.CC 08-24 09:46
PROVIDERS: ADMIT Internal Medicine; ATTEND Internal Medicine